=== PATIENT | female | born 2000 | race African-American/Black ===

== ENCOUNTER 2021-09-02 16:18 | Emergency (ER) | payer MEDICAID ==
[~2021-09-02] VITALS: Ht 154.9 cm; Wt 78.0 kg
[2021-09-02 16:27] VITALS: BP_SYST 147
--- NOTE | 2021-09-02 16:46 | NUR ---
Patient to ER bed 05 to gown for evaluation. Side rails up.
--- NOTE | 2021-09-02 19:11 | NUR ---
Dr. Herrera at bedside.
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
[2021-09-02] MEDS ORDERED: ONDANSETRON 4 MG ODT TAB PO ONE (19:15)
[2021-09-02] MEDS ORDERED: PANTOPRAZOLE SODIUM 40 MG TAB PO ONE (19:15)
--- NOTE | 2021-09-02 19:25 | NUR ---
Pt states that she often throws up after eating.
--- NOTE | 2021-09-02 19:28 | NUR ---
Report given to Kajal YOON to assume care.
[2021-09-02 19:35] LABS: BASOPHILS # (AUTO) 0.1 K/uL (0.0-0.2); BASOPHILS % (AUTO) 0.7 % (0.0-2.0); EOSINOPHILS # (AUTO) 0.1 K/uL (0.0-0.4); EOSINOPHILS % (AUTO) 1.7 % (0.0-4.0); HEMATOCRIT 38.4 % (36-48); HEMOGLOBIN 13.1 g/dL (12.0-16.0); LYMPHOCYTES # (AUTO) 2.5 K/uL (1.0-5.5); LYMPHOCYTES % (AUTO) 29.6 % (20.5-51.5); MEAN CORPUSCULAR HEMOGLOBIN 30 pg (27-31); MEAN CORPUSCULAR HGB CONC 34 % (32-36); MEAN CORPUSCULAR VOLUME 88 fL (79.0-98.0); MONOCYTES # (AUTO) 0.6 K/uL (0.0-1.0); MONOCYTES % (AUTO) 6.8 % (1.7-9.3); NEUTROPHILS # (AUTO) 5.2 K/uL (1.8-7.7); NEUTROPHILS % (AUTO) 61.2 % (40.0-70.0); PLATELET COUNT (AUTO) 329 K/uL (130-430); RED BLOOD CELL COUNT(AUTO) 4.35 MIL/uL (4.2-6.2); WHITE BLOOD COUNT (AUTO) 8.5 K/uL (4.5-11.0)
[2021-09-02 19:44] LABS: ANION GAP 7 (5-15); CALCIUM 8.8 mg/dL (8.4-11.0); CHLORIDE 105 mmol/L (98-107); CREATININE 0.88 mg/dL (0.55-1.30); GLUCOSE 94 mg/dL (70-99); POTASSIUM 4.4 mmol/L (3.5-5.1); SODIUM SERUM 140 mmol/L (136-145); UREA NITROGEN, BLOOD 8 mg/dL (8-21)
[2021-09-02 19:45] LABS: GFR AFRICAN AMERICAN 105 mL/min (>90)
[2021-09-02 19:50] LABS: ALANINE AMINOTRANSFERASE 28 U/L (12-78); ALBUMIN 4.3 g/dL (3.4-4.8); ASPARTATE AMINOTRANSFERASE 21 U/L (10-37); TOTAL BILIRUBIN < 0.1 mg/dL (0.0-1.0)
[2021-09-02 19:51] LABS: ACETAMINOPHEN < 1 ug/mL (1-30)
[2021-09-02 20:02] LABS: CHOLESTEROL 195 mg/dL (<200); HDL CHOLESTEROL 46 mg/dL (>55); LDL CHOLESTEROL 117 mg/dL (<100); TRIGLYCERIDES 115 mg/dL (30-150)
[2021-09-02 20:09] LABS: ALCOHOL, BLOOD < 3 mg/dL (<10)
[2021-09-02 20:13] LABS: BILIRUBIN,URINE NEGATIVE (NEGATIVE); BLOOD, URINE NEGATIVE (NEGATIVE); CLARITY/URINE CLEAR (CLEAR); COLOR,URINE YELLOW (YELLOW); GLUCOSE,URINE NEGATIVE (NEGATIVE); KETONES,URINE NEGATIVE (NEGATIVE); LEUKOCYTE ESTERASE ,URINE NEGATIVE (NEGATIVE); NITRITE, URINE NEGATIVE (NEGATIVE); PROTEIN URINE NEGATIVE (NEGATIVE); UROBILINOGEN,URINE 0.2 (0.2-1.0)
[2021-09-02 20:18] LABS: BARBITURATE, URINE NEGATIVE (NEG <=200); BENZODIAZEPINE, URINE NEGATIVE (NEG <=150); CANNABINOID, URINE NEGATIVE (NEG <=50); COCAINE, URINE NEGATIVE (NEG <=150); METHAMPHETAMINES SCREEN,URINE NEGATIVE (NEG <=500); OPIATE, URINE NEGATIVE (NEG <=100); PHENCYCLIDINE SCREEN,URINE NEGATIVE (NEG <=25); UR TRICYCLIC ANTIDEPRESSANTS NEGATIVE (NEG <=300); URINE AMPHETAMINE NEGATIVE (NEG <=500); URINE METHADONE NEGATIVE (NEG <=200); URINE OXYCODONE SCREEN NEGATIVE (NEG <=100); URINE PROPOXYPHENE SCREEN NEGATIVE (NEG <=300)
--- NOTE | 2021-09-02 20:52 | NUR ---
Pt awake a/o x4. speech clear and coherent. pt prefers to be addressed as Ky, Pt (+) si with no concrete plan. denies hi. denies ah / vh. pt attempted to hurt self 2 days ago by cutting, supeficial healing cuts noted to right thigh, no bleeding noted, no open wounds. contracts for safety. pt ambulatory with steady gait to bathroom. will continue to monitor.
--- NOTE | 2021-09-02 21:00 | NUR ---
Pt denies suicidal ideation at this time and intent at this time, close monitoring and rounding for safety. will continue to monitor.
--- NOTE | 2021-09-02 22:11 | NUR ---
Spoke with Anisa coordinator call back number [phone], faxed face sheet per request to [phone]
--- NOTE | 2021-09-03 02:05 | NUR ---
Pt asleep. nad.
--- NOTE | 2021-09-03 04:03 | NUR ---
Dr Villegas at bedside speaking with pt
--- NOTE | 2021-09-03 07:06 | NUR ---
Report given to KARRIE Linda for continuation of care
--- NOTE | 2021-09-03 07:15 | NUR ---
RECEIVED REPORT FROM [facility], WILL ASSUME CARE. PT SLEEPING QUIETLY. NO COMPLAINTS
--- NOTE | 2021-09-03 07:46 | NUR ---
This report writer spoke with patient to establish mental health baseline and ensure safety. Pt denies SI at this time. Informed of plan for care moving forward; verbalized understanding.
--- NOTE | 2021-09-03 07:48 | NUR ---
Dr Zavaleta (psych) at bedside to evaluate patient.
--- NOTE | 2021-09-03 07:57 | NUR ---
Per Dr Zavaleta, TSW from patient's home needs to speak with ADRIAN KWNA re discharge plan. This instructional writer to call SW when she is available. No sitter needed per Dr Zavaleta. Team to continue safety rounding on patient.
--- NOTE | 2021-09-03 08:15 | NUR ---
Spoke with Sarah Beth KWAN to inform of patient status and have her assist with discharge plan.
--- NOTE | 2021-09-03 08:20 | NUR ---
Pt ambulates with steady gait to the restroom. Pt completed 100% of breakfast. pt seated in high fowlers and communicating comfort needs.
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
--- NOTE | 2021-09-03 08:32 | NUR ---
[employer] PROFESSOR HERE EVALUATING PT.
--- NOTE | 2021-09-03 09:09 | NUR ---
Patient given written and verbal discharge instructions and verbalizes understanding. ER MD discussed with patient the results and treatment provided. Patient in stable condition. ID arm band removed, PT DISCHARGED WITH GPS FIELD DATA COLLECTOR FROM [facility]. Rx of given. Patient educated on pain management and to follow up with PMD. Pain Scale 0/10. Opportunity for questions provided and answered. Medication side effect fact sheet provided.
[2021-09-03 09:10] VITALS: BP_SYST 114
== END 2021-09-03 09:09 | disposition home or self-care (01) ==
LOC: SED 16:18
DX: R45.851 Suicidal ideations (principal); R45.88 Nonsuicidal self-harm
CPT/HCPCS: 36415; 80053; 80061; 80307; 81003; 81025; 83036; 85025; 99285; G0480; G0481; G0482; Q0162; 99283